=== PATIENT | female | born 1980 | race American Indian/Alaskan Native ===

== ENCOUNTER 2016-12-29 09:57 | Inpatient (IN) | payer OTHER ==
[2016-12-29 10:26] LABS: Mean Corpuscular HGB Conc 27 % (30-34); Red Blood Count 3.59 M/mm3 (3.65-5.03); White Blood Count 5.1 K/mm3 (4.5-11.0)
--- NOTE | 2016-12-29 10:36 | Emergency Department Report ---
ED Female HPI - General Chief complaint: Vaginal Bleeding Stated complaint: CYCLE TEN DAYS/W/CLOTS/HEADACHE/LIGHT HEADED Time Seen by Provider: 12/29/16 10:35 Source: patient Mode of arrival: Ambulatory Limitations: No Limitations - History of Present Illness Initial comments: The patient states that she's had intermittent bleeding (vaginal) for the past 10 days. She has not seen a senior db2 systems programmer in years. She states that in 2014 she was found to be anemic due to vaginal bleeding by her family physician. She was placed on iron. She did not tolerate that. She comes to the emergency department today complaining of headache, weakness and exertional dyspnea. She believes this is secondary to anemia. She is not actively bleeding at this time. She has not used pads today rather just wanted tissue. MD Complaint: vaginal bleeding Quality: other Consistency: intermittent Improves with: none, menstrual period Are you Now?: No - Related Data Allergies Allergy/AdvReac Type Severity Reaction Status Date / Time No Known Allergies Allergy Unverified 12/29/16 10:04 ED Review of Systems ROS: Stated complaint: CYCLE TEN DAYS/W/CLOTS/HEADACHE/LIGHT HEADED Other details as noted in HPI Constitutional: weakness. denies: chills, fever Eyes: denies: eye pain, eye discharge, vision change ENT: denies: ear pain, throat pain Respiratory: shortness of breath. denies: cough, wheezing Cardiovascular: denies: chest pain, palpitations Endocrine: no symptoms reported Gastrointestinal: denies: abdominal pain, nausea, diarrhea Genitourinary: denies: urgency, dysuria, discharge Musculoskeletal: denies: back pain, joint swelling, arthralgia Skin: denies: rash, lesions Neurological: headache. denies: weakness, paresthesias Psychiatric: denies: anxiety, depression Hematological/Lymphatic: denies: easy bleeding, easy bruising ED Past Medical Hx - Past Medical History Additional medical history: anemia - Social History Substance Use Type: None ED Physical Exam - General Limitations: No Limitations General appearance: alert, in no apparent distress - Head Head exam: Present: atraumatic, normocephalic - Eye Eye exam: Present: PERRL, EOMI, other (conjunctival pallor) - ENT ENT exam: Present: mucous membranes moist - Neck Neck exam: Present: normal inspection. Absent: tenderness, meningismus - Respiratory Respiratory exam: Present: normal lung sounds bilaterally. Absent: respiratory distress - Cardiovascular Cardiovascular Exam: Present: regular rate, normal rhythm. Absent: systolic murmur, diastolic murmur, rubs, gallop - GI/Abdominal GI/Abdominal exam: Present: soft, normal bowel sounds. Absent: distended, tenderness, guarding, rebound, rigid - Bi-manual exam: Present: other (deferred to ultrasound findings) - Extremities Exam Extremities exam: Present: normal inspection - Back Exam Back exam: Present: normal inspection - Neurological Exam Neurological exam: Present: alert, oriented X3, CN II-XII intact. Absent: motor sensory deficit - Psychiatric Psychiatric exam: Present: normal affect, normal mood - Skin Skin exam: Present: warm, dry, intact, normal color. Absent: rash ED Course Vital Signs 12/29/16 12/29/16 10:04 12:50 Temperature 98.0 F 98.2 F Pulse Rate 75 73 Respiratory 16 18 Rate Blood Pressure 120/59 Blood Pressure 114/63 [Right] O2 Sat by Pulse 100 98 Oximetry - Reevaluation(s) Reevaluation #1: I spoke with the senior db2 systems programmer on-call. They stated they would come and see the patient and consult. They requested the patient be admitted to medicine for transfusion. 12/29/16 15:23 Reevaluation #2: U/S no active bleeding reported by tech. GOODWIN 12/29/16 15:36 ED Medical Decision Making - Lab Data Result diagrams: 12/29/16 10:14 12/29/16 10:14 Laboratory Results - last 24 hr 12/29/16 10:14 Sodium 141 Potassium 4.1 Chloride 108.0 H Carbon Dioxide 21 L Anion Gap 16 BUN 10 Creatinine 0.7 Estimated GFR > 60 BUN/Creatinine Ratio 14.28 Glucose 78 Calcium 8.9 Total Bilirubin 0.4 AST 14 ALT 9 Alkaline Phosphatase 49 Total Protein 7.0 Albumin 4.0 Albumin/Globulin Ratio 1.3 Lipase 14 Laboratory Results - last 24 hr 12/29/16 12/29/16 12/29/16 10:14 10:14 10:54 WBC 5.1 RBC 3.59 L Hgb 5.2 L* Hct 19.3 L* MCV 54 L MCH 14 L MCHC 27 L RDW 34.0 H Add Manual Diff Complete Total Counted 100 Seg Neuts % (Manual) 48.0 Band Neutrophils % 0 Lymphocytes % (Manual) 44.0 H Reactive Lymphs % (Man) 0 Monocytes % (Manual) 1.0 Eosinophils % (Manual) 2.0 Basophils % (Manual) 0 Metamyelocytes % 4.0 Myelocytes % 1.0 Promyelocytes % 0 Blast Cells % 0 Nucleated RBC % Not Reportable Seg Neutrophils # Man 2.4 Band Neutrophils # 0.0 Lymphocytes # (Manual) 2.2 Abs React Lymphs (Man) 0.0 Monocytes # (Manual) 0.1 Eosinophils # (Manual) 0.1 Basophils # (Manual) 0.0 Metamyelocytes # 0.2 Myelocytes # 0.1 Promyelocytes # 0.0 Blast Cells # 0.0 WBC Morphology Not Reportable Hypersegmented Neuts Not Reportable Hyposegmented Neuts Not Reportable Hypogranular Neuts Not Reportable Smudge Cells Not Reportable Toxic Granulation Not Reportable Toxic Vacuolation Not Reportable Dohle Bodies Not Reportable Pelger-Huet Anomaly Not Reportable Liz Rods Not Reportable Platelet Estimate Appears decreased Clumped Platelets Not Reportable Plt Clumps, EDTA Not Reportable Large Platelets Not Reportable Giant Platelets Not Reportable Platelet Satelliting Not Reportable Plt Morphology Comment Not Reportable RBC Morphology Not Reportable Dimorphic RBCs Not Reportable Polychromasia Not Reportable Hypochromasia 3+ Poikilocytosis Not Reportable Anisocytosis Not Reportable Microcytosis 2+ Macrocytosis Not Reportable Spherocytes Not Reportable Pappenheimer Bodies Not Reportable Sickle Cells Not Reportable Target Cells Not Reportable Tear Drop Cells Not Reportable Ovalocytes Not Reportable Helmet Cells Not Reportable Karimi-Woodlake Bodies Not Reportable Imperial Rings Not Reportable Jose Alejandro Cells Not Reportable Bite Cells Not Reportable Crenated Cell Not Reportable Elliptocytes Not Reportable Acanthocytes (Spur) Not Reportable Rouleaux Not Reportable Hemoglobin C Crystals Not Reportable Schistocytes Not Reportable Malaria parasites Not Reportable Mikey Bodies Not Reportable Hem Pathologist Commnt Sent to pathology Sodium 141 Potassium 4.1 Chloride 108.0 H Carbon Dioxide 21 L Anion Gap 16 BUN 10 Creatinine 0.7 Estimated GFR > 60 BUN/Creatinine Ratio 14.28 Glucose 78 Calcium 8.9 Total Bilirubin 0.4 AST 14 ALT 9 Alkaline Phosphatase 49 Total Protein 7.0 Albumin 4.0 Albumin/Globulin Ratio 1.3 Lipase 14 Urine Color Red Urine Turbidity Cloudy Urine pH 9.0 H Ur Specific [place]ay 1.021 Urine Protein 100 mg/dl Urine Glucose (UA) Neg Urine Ketones Neg Urine Blood Lg Urine Nitrite Neg Urine Bilirubin Neg Urine Urobilinogen < 2.0 Ur Leukocyte Esterase Neg Urine WBC (Auto) 2.0 Urine RBC (Auto) > 182.0 U Epithel Cells (Auto) 2.0 Urine Mucus 2+ Urine HCG, Qual Negative Blood Type Antibody Screen Crossmatch 12/29/16 11:10 WBC RBC Hgb Hct MCV MCH MCHC RDW Add Manual Diff Total Counted Seg Neuts % (Manual) Band Neutrophils % Lymphocytes % (Manual) Reactive Lymphs % (Man) Monocytes % (Manual) Eosinophils % (Manual) Basophils % (Manual) Metamyelocytes % Myelocytes % Promyelocytes % Blast Cells % Nucleated RBC % Seg Neutrophils # Man Band Neutrophils # Lymphocytes # (Manual) Abs React Lymphs (Man) Monocytes # (Manual) Eosinophils # (Manual) Basophils # (Manual) Metamyelocytes # Myelocytes # Promyelocytes # Blast Cells # WBC Morphology Hypersegmented Neuts Hyposegmented Neuts Hypogranular Neuts Smudge Cells Toxic Granulation Toxic Vacuolation Dohle Bodies Pelger-Huet Anomaly Liz Rods Platelet Estimate Clumped Platelets Plt Clumps, EDTA Large Platelets Giant Platelets Platelet Satelliting Plt Morphology Comment RBC Morphology Dimorphic RBCs Polychromasia Hypochromasia Poikilocytosis Anisocytosis Microcytosis Macrocytosis Spherocytes Pappenheimer Bodies Sickle Cells Target Cells Tear Drop Cells Ovalocytes Helmet Cells Karimi-Woodlake Bodies Imperial Rings Jose Alejandro Cells Bite Cells Crenated Cell Elliptocytes Acanthocytes (Spur) Rouleaux Hemoglobin C Crystals Schistocytes Malaria parasites Mikey Bodies Hem Pathologist Commnt Sodium Potassium Chloride Carbon Dioxide Anion Gap BUN Creatinine Estimated GFR BUN/Creatinine Ratio Glucose Calcium Total Bilirubin AST ALT Alkaline Phosphatase Total Protein Albumin Albumin/Globulin Ratio Lipase Urine Color Urine Turbidity Urine pH Ur Specific [place] Urine Protein Urine Glucose (UA) Urine Ketones Urine Blood Urine Nitrite Urine Bilirubin Urine Urobilinogen Ur Leukocyte Esterase Urine WBC (Auto) Urine RBC (Auto) U Epithel Cells (Auto) Urine Mucus Urine HCG, Qual Blood Type O POSITIVE Antibody Screen Negative Crossmatch See Detail Laboratory Results - last 24 hr 12/29/16 12/29/16 12/29/16 10:14 10:14 10:54 WBC 5.1 RBC 3.59 L Hgb 5.2 L* Hct 19.3 L* MCV 54 L MCH 14 L MCHC 27 L RDW 34.0 H Add Manual Diff Complete Total Counted 100 Seg Neuts % (Manual) 48.0 Band Neutrophils % 0 Lymphocytes % (Manual) 44.0 H Reactive Lymphs % (Man) 0 Monocytes % (Manual) 1.0 Eosinophils % (Manual) 2.0 Basophils % (Manual) 0 Metamyelocytes % 4.0 Myelocytes % 1.0 Promyelocytes % 0 Blast Cells % 0 Nucleated RBC % Not Reportable Seg Neutrophils # Man 2.4 Band Neutrophils # 0.0 Lymphocytes # (Manual) 2.2 Abs React Lymphs (Man) 0.0 Monocytes # (Manual) 0.1 Eosinophils # (Manual) 0.1 Basophils # (Manual) 0.0 Metamyelocytes # 0.2 Myelocytes # 0.1 Promyelocytes # 0.0 Blast Cells # 0.0 WBC Morphology Not Reportable Hypersegmented Neuts Not Reportable Hyposegmented Neuts Not Reportable Hypogranular Neuts Not Reportable Smudge Cells Not Reportable Toxic Granulation Not Reportable Toxic Vacuolation Not Reportable Dohle Bodies Not Reportable Pelger-Huet Anomaly Not Reportable Liz Rods Not Reportable Platelet Estimate Appears decreased Clumped Platelets Not Reportable Plt Clumps, EDTA Not Reportable Large Platelets Not Reportable Giant Platelets Not Reportable Platelet Satelliting Not Reportable Plt Morphology Comment Not Reportable RBC Morphology Not Reportable Dimorphic RBCs Not Reportable Polychromasia Not Reportable Hypochromasia 3+ Poikilocytosis Not Reportable Anisocytosis Not Reportable Microcytosis 2+ Macrocytosis Not Reportable Spherocytes Not Reportable Pappenheimer Bodies Not Reportable Sickle Cells Not Reportable Target Cells Not Reportable Tear Drop Cells Not Reportable Ovalocytes Not Reportable Helmet Cells Not Reportable Karimi-Woodlake Bodies Not Reportable Imperial Rings Not Reportable Jose Alejandro Cells Not Reportable Bite Cells Not Reportable Crenated Cell Not Reportable Elliptocytes Not Reportable Acanthocytes (Spur) Not Reportable Rouleaux Not Reportable Hemoglobin C Crystals Not Reportable Schistocytes Not Reportable Malaria parasites Not Reportable Mikey Bodies Not Reportable Hem Pathologist Commnt Sent to pathology Sodium 141 Potassium 4.1 Chloride 108.0 H Carbon Dioxide 21 L Anion Gap 16 BUN 10 Creatinine 0.7 Estimated GFR > 60 BUN/Creatinine Ratio 14.28 Glucose 78 Calcium 8.9 Total Bilirubin 0.4 AST 14 ALT 9 Alkaline Phosphatase 49 Total Protein 7.0 Albumin 4.0 Albumin/Globulin Ratio 1.3 Lipase 14 Urine Color Red Urine Turbidity Cloudy Urine pH 9.0 H Ur Specific Barclay 1.021 Urine Protein 100 mg/dl Urine Glucose (UA) Neg Urine Ketones Neg Urine Blood Lg Urine Nitrite Neg Urine Bilirubin Neg Urine Urobilinogen < 2.0 Ur Leukocyte Esterase Neg Urine WBC (Auto) 2.0 Urine RBC (Auto) > 182.0 U Epithel Cells (Auto) 2.0 Urine Mucus 2+ Urine HCG, Qual Negative Blood Type Antibody Screen Crossmatch 12/29/16 11:10 WBC RBC Hgb Hct MCV MCH MCHC RDW Add Manual Diff Total Counted Seg Neuts % (Manual) Band Neutrophils % Lymphocytes % (Manual) Reactive Lymphs % (Man) Monocytes % (Manual) Eosinophils % (Manual) Basophils % (Manual) Metamyelocytes % Myelocytes % Promyelocytes % Blast Cells % Nucleated RBC % Seg Neutrophils # Man Band Neutrophils # Lymphocytes # (Manual) Abs React Lymphs (Man) Monocytes # (Manual) Eosinophils # (Manual) Basophils # (Manual) Metamyelocytes # Myelocytes # Promyelocytes # Blast Cells # WBC Morphology Hypersegmented Neuts Hyposegmented Neuts Hypogranular Neuts Smudge Cells Toxic Granulation Toxic Vacuolation Dohle Bodies Pelger-Huet Anomaly Liz Rods Platelet Estimate Clumped Platelets Plt Clumps, EDTA Large Platelets Giant Platelets Platelet Satelliting Plt Morphology Comment RBC Morphology Dimorphic RBCs Polychromasia Hypochromasia Poikilocytosis Anisocytosis Microcytosis Macrocytosis Spherocytes Pappenheimer Bodies Sickle Cells Target Cells Tear Drop Cells Ovalocytes Helmet Cells Karimi-Woodlake Bodies Imperial Rings [place] Cells Bite Cells Crenated Cell Elliptocytes Acanthocytes (Spur) Rouleaux Hemoglobin C Crystals Schistocytes Malaria parasites Mikey Bodies Hem Pathologist Commnt Sodium Potassium Chloride Carbon Dioxide Anion Gap BUN Creatinine Estimated GFR BUN/Creatinine Ratio Glucose Calcium Total Bilirubin AST ALT Alkaline Phosphatase Total Protein Albumin Albumin/Globulin Ratio Lipase Urine Color Urine Turbidity Urine pH Ur Specific Barclay Urine Protein Urine Glucose (UA) Urine Ketones Urine Blood Urine Nitrite Urine Bilirubin Urine Urobilinogen Ur Leukocyte Esterase Urine WBC (Auto) Urine RBC (Auto) U Epithel Cells (Auto) Urine Mucus Urine HCG, Qual Blood Type O POSITIVE Antibody Screen Negative Crossmatch See Detail Critical care attestation.: If time is entered above; I have spent that time in minutes in the direct care of this critically ill patient, excluding procedure time. ED Disposition Clinical Impression: Symptomatic anemia, Dysfunctional uterine bleeding Disposition: OP ADMITTED IP TO THIS HOSP Is pt being admited?: Yes Does the pt Need Aspirin: No Condition: Stable Time of Disposition: 15:38
[2016-12-29 10:39] LABS: Alanine Aminotransferase 9 units/L (7-56); Albumin/Globulin Ratio 1.3 %; Alkaline Phosphatase 49 units/L (35-129); Anion Gap 16 mmol/L; BUN/Creatinine Ratio 14.28; Bilirubin,Total 0.4 mg/dL (0.1-1.2); Blood Urea Nitrogen 10 mg/dL (7-17); Calcium 8.9 mg/dL (8.4-10.2); Carbon Dioxide 21 mmol/L (22-30); Glucose 78 mg/dL (65-100); Lipase 14 units/L (13-60); Potassium 4.1 mmol/L (3.6-5.0); Sodium 141 mmol/L (137-145)
[2016-12-29 10:40] LABS: Mean Corpuscular Hemoglobin 14 pg (28-32); Mean Corpuscular Volume 54 fl (79-97)
[2016-12-29 10:47] LABS: Hematocrit 19.3 % (30.3-42.9)
[2016-12-29 10:48] LABS: Hemoglobin 5.2 gm/dl (10.1-14.3)
[2016-12-29] MEDS ORDERED: NACL 0.9% 1000 ML 1,000 ML IV ONE (10:48)
[2016-12-29] MEDS ORDERED: NACL 0.9% 500 ML 500 ML IV ONE (10:48)
--- NOTE | 2016-12-29 11:14 | Admit Criteria Form ---
Admission Criteria Documentation: OBSTETRIC AND GYNECOLOGIC DISEASE GRG Clinical Indications for Admission to Inpatient Care (Place 'X' for any and all applicable criteria): Hospital admission is needed for appropriate care of the patient because of ANY ONE of the following (1)(2)(3): [ ]I. Hemodynamic instability, as indicated by ALL of the following (1)(2)(3)( 4)(5): [ ]a) Vital signs or other findings not as expected for chronic patient condition or baseline [ ]b) Instability indicated by ANY ONE of the following: [ ]i) Hypotension [ ]ii) Symptomatic tachycardia unresponsive to treatment (eg, analgesia, fluids, sedation as indicated) [ ]iii) Inadequate perfusion indicated by ANY ONE of the following: [ ]A. Lactic acidosis (greater than 2 mmol/ L) [ ]B. New abnormal capillary refill ( greater than 3 seconds) [ ]C. Reduced urine output [ ]D. New altered mental status [ ]iv) Orthostatic vital sign changes unresponsive to treatment (eg, fluids) [ ]v) Multiple IV fluid boluses required to maintain adequate blood pressure or perfusion [ ]vi) IV inotropic or vasopressor medication required to maintain adequate blood pressure or perfusion [ ]II. Obstetric infection requiring hospitalization indicated by ANY ONE of the following(13)(14): [ ]a) Chorioamnionitis [ ]b) Endometritis (except mild endometritis) [ ]c) Pelvic abscess [ ]d) Peritonitis [ ]e) Septic pelvic thrombophlebitis [ ]III. Amniotic fluid or pulmonary embolism(4)(5)(6) [ ]IV. Suspected peritonitis or ectopic requiring monitoring beyond scope of 24 hours or observation care(7)(8) [ ]V. compromise requiring hospitalization indicated by ALL of the following(9)(10): [ ]a) compromise indicated by ANY ONE of the following(11): [ ]i) Abnormal heart rate monitoring [ ]ii) Abnormal contraction stress test [ ]iii) Abnormal biophysical profile [ ]iv) Abnormal Doppler flow in vessels (ie, Doppler velocimetry) (12) [ ]b) Persistence of compromise indicators during evaluation and observation monitoring [ ]. Ovarian hyperstimulation syndrome requiring hospitalization[A] indicated by ALL of the following(15): [ ]a) Recent ovarian stimulation with gonadotropins, or evidence on ultrasound of spontaneous emergence of large number of ovarian follicles [ ]b) Evidence of severe ovarian hyperstimulation syndrome indicated by ANY ONE of the following: [ ]i) Abdominal pain unresponsive to oral therapy [ ]ii) Acute respiratory distress syndrome [ ]iii) Electrolyte imbalance ( eg, hyponatremia, hyperkalemia) [ ]iv) Elevated liver enzymes [ ]v) Evidence of thromboembolism [ ]vi) Hemoconcentration (hematocrit greater than 45 % (0.45)) [ ]vii) Inability to maintain oral intake adequate to prevent hemoconcentration [ ]viii) Marked hypotension from baseline (eg, SBP 20 mmHg below patients usual pressure) [ ]ix) Oliguria or anuria [ ]x) Ovarian torsion [ ]xi) Pleural or pericardial effusion on x-ray or echocardiogram [ ]xii) Rapid increase in serum creatinine to greater than 1.2 mg/dL (106 micromoles/L) or creatinine clearance less than 50 mL/min/1.73m2 (0.84 mL/ sec/1.73m2) [ ]xiii) Ruptured ovarian cyst with hemorrhage [ ]xiv) Severe abdominal pain or peritoneal signs [ ]xv) Tense ascites that cannot be managed with paracentesis in outpatient setting [ ]VII.Pelvic infection requiring hospitalization indicated by ANY ONE of the following (16): [ ]a) Outpatient treatment has failed or is not appropriate (eg, inpatient monitoring required) [ ]b) Pelvic abscess [ ]c) Surgical emergency cannot be excluded (eg, rigid abdomen) [ ]d) Vomiting precluding outpatient and observation care management VIII. loss complications requiring inpatient medical treatment indicated by ANY ONE of the following (4)(7)(9): [ ]a) Fever [ ]b) Peritonitis [ ]c) Sepsis [ ]d) Severe abdominal pain [ ]IX. or patient requiring monitoring for severe heart failure, pulmonary disease, or other comorbid condition (eg, peripartum cardiomyopathy) (4)(17) [ ]X. patient with rupture of membranes requiring hospitalization indicated by ANY ONE of the following: [ ]a) Chorioamnionitis, cloudy amniotic fluid, or other evidence of infection [ ]b) compromise or other need for monitoring (11) [ ]c) Gestation longer than 23 weeks and ANY ONE of the following: [ ]i) Abnormal (noncephalic) presentation [ ]ii) Inadequate home environment (eg, home too far from hospital, unable to rapidly return to hospital) [ ]d) Temperature greater than 100.4 degrees F (38 degrees C)( oral) [ ]e) Threatened labor requiring monitoring beyond scope (eg, over 24 hours) of observation Care [ ] XI. complications, including severe lacerations, infections, or retained placenta (19) [X ] XII.Uterine bleeding with high-risk features indicated by ANY ONE of the following (4): [ ]a) Active major hemorrhage (eg, hemorrhage) [ ]b) Coagulopathy with active bleeding [ ]c) Gestational trophoblastic disease (eg, molar ) (20 ) [ ]d) (longer than 23 weeks) and ANY ONE of the following: [ ]i) Pain [ ]ii) Placental abruption, known or suspected [ ]iii) Placenta accrete, known or suspected(21) [ ]iv) Placenta previa, known or suspected [ ]v) Vasa previa [X ]e) Severe anemia [ ]XIII. Obstetric or Gynecologic Disease, condition or symptom for which ANY ONE of the following: [ ]a) Emergency and observation care have failed or are not considered appropriate ( Also use General Criteria: Observation Care Criteria as appropriate) [ ]b) Presence of a General Admission Criteria or Pediatric General Admission Criteria The original [facility] datapine content created by [facility] has been revised. The portions of the content which have been revised are identified through the use of italic text or in bold, and [facility] has neither reviewed nor approved the modified material.All other unmodified content is copyright [facility]. Please see references footnoted in the original [facility] edition 2016 Admission Criteria Met: Yes
[2016-12-29 11:31] LABS: Bilirubin,Urine NEG (Negative); Blood,Urine LG (Negative); Ketones,Urine NEG (Negative); Leukocyte Esterase,Urine NEG (Negative); Mucus,Urine 2+ /HPF; Nitrite,Urine NEG (Negative); Urobilinogen,Urine < 2.0 mg/dL (<2.0)
[2016-12-29 11:33] LABS: RBC,Urine > 182.0 /HPF (0.0-6.0)
[2016-12-29 12:18] LABS: Basophils % (Manual) 0 % (0.0-1.8); Blastocytes % (Manual) 0 %
[2016-12-29 12:20] LABS: Hypochromasia 3+
[2016-12-29 12:21] LABS: Microcytosis 2+
[2016-12-29 12:22] LABS: Diff Status Complete; Platelet Estimate Appears Decreased
[2016-12-29] MEDS ORDERED: NACL ONE (12:32)
--- NOTE | 2016-12-29 14:19 | History and Physical Report ---
History of Present Illness Date of examination: 12/29/16 Chief complaint: heavy vaginal bleeding with dizziness History of present illness: Patient is 36-year-old woman without any chronic medical problems who presents with severe heavy constant vaginal bleeding since 19 of December with heavy clots without nonradiating pain. She complains of lightheadedness faint fatigue. She denies any fevers chills cough abdominal pain nausea vomiting diarrhea or urinary retention. She denies any other complaints. Past History Past Medical History: other (as hpi) Past Surgical History: Other (tubal ligitation) Social history: full code. denies: smoking, alcohol abuse, prescription drug abuse, IV drug use Family history: hypertension (sister) Medications and Allergies Allergies Allergy/AdvReac Type Severity Reaction Status Date / Time No Known Allergies Allergy Unverified 12/29/16 10:04 Active Meds: Active Medications Sodium Chloride (Nacl 0.9% 1000 Ml) 1,000 mls @ 125 mls/hr IV ONCE ONE Stop: 12/29/16 18:47 Last Admin: 12/29/16 13:11 Dose: 125 mls/hr Review of Systems All systems: negative (as HPI and all other ROS reviewed and negative.) Exam - Physical Exam Narrative exam: GEN: WDWN, NAD, AWAKE, ALERT, ORIENTATED x 3 HEENT: NCAT, PERRL, EOMI, OP CLEAR NECK: SUPPLE, NO THYROMEGALY, NO JVD, NO LAD CVS: RRR, NORMAL S1S2 LUNGS/CHEST: CTA B, NORMAL CHEST EXPANSION B, GOOD AIR ENTRY B ABD: SOFT NTND, GBS, NO REBOUND OR GUARDING EXT/SKIN: NO SIGNIFICANT EDEMA OR RASH MSK: FROM X 4 EXTREMITIES NEURO: CN 2-12 GROSSLY INTACT, NO FOCAL DEFICITS PSY: CALM - Constitutional Vitals: Temp Pulse Resp BP Pulse Ox 98.2 F 73 18 114/63 98 12/29/16 12:50 12/29/16 12:50 12/29/16 12:50 12/29/16 12:50 12/29/16 12:50 Results - Labs CBC & Chem 7: 12/29/16 10:14 12/29/16 10:14 Labs: Abnormal lab results 12/29/16 12/29/16 12/29/16 Range/Units 10:14 10:14 10:54 RBC 3.59 L (3.65-5.03) M/mm3 Hgb 5.2 L* (10.1-14.3) gm/dl Hct 19.3 L* (30.3-42.9) % MCV 54 L (79-97) fl MCH 14 L (28-32) pg MCHC 27 L (30-34) % RDW 34.0 H (13.2-15.2) % Lymphocytes % (Manual) 44.0 H (13.4-35.0) % Chloride 108.0 H (98-107) mmol/L Carbon Dioxide 21 L (22-30) mmol/L Urine pH 9.0 H (5.0-7.0) Crossmatch 12/29/16 Range/Units 11:10 RBC (3.65-5.03) M/mm3 Hgb (10.1-14.3) gm/dl Hct (30.3-42.9) % MCV (79-97) fl MCH (28-32) pg MCHC (30-34) % RDW (13.2-15.2) % Lymphocytes % (Manual) (13.4-35.0) % Chloride (98-107) mmol/L Carbon Dioxide (22-30) mmol/L Urine pH (5.0-7.0) Crossmatch See Detail Assessment and Plan Patient is 36-year-old woman without any chronic medical problems who presents with severe heavy constant vaginal bleeding since 19 of December with heavy clots without nonradiating pain. She complains of lightheadedness faint fatigue. She denies any fevers chills cough abdominal pain nausea vomiting diarrhea or urinary retention. She denies any other complaints. She was found have a hemoglobin of 5.2, hence, the admission. ED physician did call [facility] wants hospitalist to admit. 1. Abnormal uterine and vaginal bleeding: obgyn consulted 2. Anemia requiring transfusion 3. Dehydration due to anemia: Will hydrated with blood 4. Hematuria due to the above
[2016-12-29] MEDS ORDERED: TYLENOL PO PRN (14:21)
--- NOTE | 2016-12-29 14:58 | Ultrasound Report ---
Pelvic and transvaginal sonography: History: Anemia. Findings: Uterus measures 9.9 x 6.1 x 8.7 cm. Several fibroids are identified of the uterus. The largest measures 3.3 x 2.8 x 3.3 cm and is at the fundus. The smallest measures 1.5 x 1.1 x 1.8 cm and is of the left side. 2 other fibroids also identified with intermediate size. Endometrial thickness 10 mm. No mass or fluid in the endometrium. Right ovary 2.5 x 2.1 x 2.3 cm. No mass. Left ovary 2.6 x 2.2 x 2.8 cm. Cyst in the left ovary measures 2.2 cm. Minimal fluid in the cul-de-sac. Impression: Several fibers of uterus. Cyst in the left ovary. Minimal fluid in the cul-de-sac.
[2016-12-29] MEDS ORDERED: BENADRYL PO ONE ×2 (15:23→15:30)
[2016-12-29 15:40] LABS: Platelet Count 68 K/mm3 (140-440)
--- NOTE | 2016-12-29 18:06 | Consultation ---
History of Present Illness Consult date: 12/29/16 Requesting physician: BILLY VASQUEZ Reason for consult: menorrhagia History of present illness: Pt presented to ER c/o feeling fatigue and some dizziness starting today. 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 In Nov she had bleeding that stared on 12/19-12/22 that was the normal bleeding. However, after 12/22 she started having large clots being passed with blood "gushing out" when coughs, laughs or urinates. She is currently bleeding and declined vaginal exam. I advised pt that I would review sonogram and defer vaginal exam until seen in my office. Pt agrees with plan of care. Sonogram does show small fibroids with largest measuring 3.3cm. Pt has not seen a production manufacturing worker in several years but states last pap with pcp was normal. She does c/o increase lower abdominal girth with menses. 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: abnormal PAP smear (hpv and h/o cryo at age 13) Family/Genetic History: heart disease, hypertension, other (fibroids;) Social history: no significant social history - Obstetrical History : 3 Para: 2 Hx # Term Pregnancies: 2 Spontaneous Abortions: 1 Number of Living Children: 2 Medications and Allergies Allergies Allergy/AdvReac Type Severity Reaction Status Date / Time No Known Allergies Allergy Unverified 12/29/16 10:04 Home Medications Medication Instructions Recorded Confirmed Last Taken Type No Known Home Medications [No 12/29/16 12/29/16 Unknown History Reported Home Medications] Active Meds: Active Medications Acetaminophen (Tylenol) 650 mg PO Q6H PRN PRN Reason: Non Cardiac Pain or Temp>100.5 Sodium Chloride (Nacl 0.9% 1000 Ml) 1,000 mls @ 125 mls/hr IV ONCE ONE Stop: 12/29/16 18:47 Last Admin: 12/29/16 13:11 Dose: 125 mls/hr Review of Systems All systems: negative - Vital Signs Vital signs: Vital Signs Temp Pulse Resp BP Pulse Ox 98.0 F 75 16 120/59 100 12/29/16 10:04 12/29/16 10:04 12/29/16 10:04 12/29/16 10:04 12/29/16 10:04 Temp Pulse Resp BP Pulse Ox 98.8 F 77 20 128/59 100 12/29/16 16:24 12/29/16 16:24 12/29/16 16:24 12/29/16 16:24 12/29/16 16:24 - Physical Exam Breasts: Positive: deferred Lungs: Positive: Normal air movement Abdomen: Positive: normal appearance, soft. Negative: distention, tenderness, guarding Genitourinary (Female): Positive: other (deferred as per pt request) Extremities: Positive: normal. Negative: tenderness, edema Deep Tendon Reflex Grade: Normal +2 Results Result Diagrams: 12/29/16 10:14 12/29/16 10:14 All other labs normal. Assessment and Plan - Patient Problems (1) Uterine fibroid Current Visit: Yes Status: Acute Qualifiers: Uterine leiomyoma location: U Plan to address problem: -I have d/w pt several treatment options both surgical, and medical. Pt is leaning towards hysterectomy. I advised that she will need pap and completer work up prior to getting scheduled for any surgery. All of which can be done out patient. (2) Symptomatic anemia Current Visit: Yes Status: Acute Plan to address problem: -pt getting transfusion at this time -Oral Iron outpt. (3) Menorrhagia Current Visit: Yes Status: Acute Qualifiers: Menorrahagia type: with regular cycle Qualified Code(s): N92.0 - Excessive and frequent menstruation with regular cycle Plan to address problem: -currently small fibroids noted -will start provera 10mg po bid to help decrease the bleeding -needs pap, SIS, and embx for completed work up -would also recommend a thyroid panel -plan of care d/w and all questions were addressed and answered -ok to discharge pt with follow up in one week in [facility] ,[facility] office after transfusion completed as the work up can be done out patient.
[2016-12-29] MEDS: PROVERA PO SCH (22:22)
[2016-12-30 04:40] LABS: Mean Corpuscular HGB Conc 29 % (30-34); Red Blood Count 3.62 M/mm3 (3.65-5.03); White Blood Count 5.3 K/mm3 (4.5-11.0)
[2016-12-30 05:04] LABS: BUN/Creatinine Ratio 13.33; Blood Urea Nitrogen 8 mg/dL (7-17); Calcium 7.9 mg/dL (8.4-10.2); Carbon Dioxide 22 mmol/L (22-30); Chloride 108.9 mmol/L (98-107); Glucose 97 mg/dL (65-100); Potassium 3.8 mmol/L (3.6-5.0); Sodium 141 mmol/L (137-145)
[2016-12-30 05:05] LABS: Hematocrit 20.8 % (30.3-42.9); Mean Corpuscular Hemoglobin 16 pg (28-32); Mean Corpuscular Volume 58 fl (79-97); Platelet Count 64 K/mm3 (140-440); Red Cell Distribution Width 38.6 % (13.2-15.2)
[2016-12-30 05:11] LABS: Hemoglobin 5.9 gm/dl (10.1-14.3)
[2016-12-30] MEDS ORDERED: NACL 0.9% 500 ML 500 ML IV ONE (05:20)
[2016-12-30 05:28] LABS: Anion Gap 14 mmol/L
[2016-12-30] MEDS ORDERED: NACL 0.9% 500 ML 500 ML IV NR (10:00)
[2016-12-30] MEDS: PROVERA PO SCH ×2 (11:56→23:24)
--- NOTE | 2016-12-30 13:23 | Event Note ---
Date: 12/30/16 Patient doing fine, has received 2 u PRBC for her menorrhagia and chronic anemia , plans to receive 2 more. She understands the plan for office management of this problem with Dr Hernandez in our office. Prescriptions written for iron bid and Provera 10mg bid. She may be discharged from our point of view to f/u in office.
[2016-12-31] MEDS ORDERED: NACL 0.9% 500 ML 500 ML IV SCH (01:00)
--- NOTE | 2016-12-31 07:24 | Progress Note ---
Assessment and Plan - Patient Problems (1) Blood loss anemia Current Visit: Yes Status: Acute Plan to address problem: PRBC transfusion, supportive care, cbc in am. (2) Symptomatic anemia Current Visit: Yes Status: Acute Plan to address problem: prbc transfusion, bed rest until blood transfusion complete, supportive care, special education professional consulted, supportive care. (3) Menorrhagia Current Visit: Yes Status: Acute Qualifiers: Menorrahagia type: with regular cycle Qualified Code(s): N92.0 - Excessive and frequent menstruation with regular cycle Plan to address problem: BYN consulted, OCP, outpatieint special education professional f/u. (4) Uterine fibroid Current Visit: Yes Status: Acute Qualifiers: Uterine leiomyoma location: U Plan to address problem: supportive care, outpatient special education professional f/u, supportive care, (5) Obesity Current Visit: Yes Status: Acute Qualifiers: Obesity type: O Obesity severity: O Plan to address problem: Pt counseled, (6) DVT prophylaxis Current Visit: Yes Status: Acute History Interval history: Pt resting in bed, Pt states that she feels weak all the time, Pt denies fever, chills, CP, Palpitations, NVD, BRBPR. Hospitalist Physical - Constitutional Vitals: Temp Pulse Resp BP Pulse Ox 98 F 73 18 132/64 99 12/31/16 06:41 12/31/16 06:41 12/31/16 06:41 12/31/16 06:41 12/31/16 06:41 General appearance: Present: mild distress - EENT Eyes: Present: PERRL (conjunctival pallor) ENT: hearing intact - Neck Neck: Present: supple - Respiratory Respiratory effort: normal Respiratory: bilateral: CTA - Cardiovascular Rhythm: regular Heart Sounds: Present: S1 & S2 - Extremities Extremities: no ischemia Peripheral Pulses: within normal limits - Abdominal General gastrointestinal: soft, non-tender, non-distended - Integumentary Integumentary: Present: clear, dry - Psychiatric Psychiatric: appropriate mood/affect, cooperative - Neurologic Neurologic: CNII-XII intact, gait normal Results - Labs CBC & Chem 7: 12/30/16 04:27 12/30/16 04:27 Labs: Laboratory Last Values WBC 5.3 K/mm3 (4.5-11.0) 12/30/16 04:27 RBC 3.62 M/mm3 (3.65-5.03) L 12/30/16 04:27 Hgb 5.9 gm/dl (10.1-14.3) L* 12/30/16 04:27 Hct 20.8 % (30.3-42.9) L 12/30/16 04:27 MCV 58 fl (79-97) L D 12/30/16 04:27 MCH 16 pg (28-32) L 12/30/16 04:27 MCHC 29 % (30-34) L 12/30/16 04:27 RDW 38.6 % (13.2-15.2) H 12/30/16 04:27 Plt Count 64 K/mm3 (140-440) L 12/30/16 04:27 Add Manual Diff Complete 12/29/16 10:14 Total Counted 100 12/29/16 10:14 Seg Neuts % (Manual) 48.0 % (40.0-70.0) 12/29/16 10:14 Band Neutrophils % 0 % 12/29/16 10:14 Lymphocytes % (Manual) 44.0 % (13.4-35.0) H 12/29/16 10:14 Reactive Lymphs % (Man) 0 % 12/29/16 10:14 Monocytes % (Manual) 1.0 % (0.0-7.3) 12/29/16 10:14 Eosinophils % (Manual) 2.0 % (0.0-4.3) 12/29/16 10:14 Basophils % (Manual) 0 % (0.0-1.8) 12/29/16 10:14 Metamyelocytes % 4.0 % 12/29/16 10:14 Myelocytes % 1.0 % 12/29/16 10:14 Promyelocytes % 0 % 12/29/16 10:14 Blast Cells % 0 % 12/29/16 10:14 Nucleated RBC % Not Reportable 12/29/16 10:14 Seg Neutrophils # Man 2.4 K/mm3 (1.8-7.7) 12/29/16 10:14 Band Neutrophils # 0.0 K/mm3 12/29/16 10:14 Lymphocytes # (Manual) 2.2 K/mm3 (1.2-5.4) 12/29/16 10:14 Abs React Lymphs (Man) 0.0 K/mm3 12/29/16 10:14 Monocytes # (Manual) 0.1 K/mm3 (0.0-0.8) 12/29/16 10:14 Eosinophils # (Manual) 0.1 K/mm3 (0.0-0.4) 12/29/16 10:14 Basophils # (Manual) 0.0 K/mm3 (0.0-0.1) 12/29/16 10:14 Metamyelocytes # 0.2 K/mm3 12/29/16 10:14 Myelocytes # 0.1 K/mm3 12/29/16 10:14 Promyelocytes # 0.0 K/mm3 12/29/16 10:14 Blast Cells # 0.0 K/mm3 12/29/16 10:14 Pathologist Review 12/29/16 10:14 WBC Morphology Not Reportable 12/29/16 10:14 Hypersegmented Neuts Not Reportable 12/29/16 10:14 Hyposegmented Neuts Not Reportable 12/29/16 10:14 Hypogranular Neuts Not Reportable 12/29/16 10:14 Smudge Cells Not Reportable 12/29/16 10:14 Toxic Granulation Not Reportable 12/29/16 10:14 Toxic Vacuolation Not Reportable 12/29/16 10:14 Dohle Bodies Not Reportable 12/29/16 10:14 Pelger-Huet Anomaly Not Reportable 12/29/16 10:14 Liz Rods Not Reportable 12/29/16 10:14 Platelet Estimate Appears decreased 12/29/16 10:14 Clumped Platelets Not Reportable 12/29/16 10:14 Plt Clumps, EDTA Not Reportable 12/29/16 10:14 Large Platelets Not Reportable 12/29/16 10:14 Giant Platelets Not Reportable 12/29/16 10:14 Platelet Satelliting Not Reportable 12/29/16 10:14 Plt Morphology Comment Not Reportable 12/29/16 10:14 RBC Morphology Not Reportable 12/29/16 10:14 Dimorphic RBCs Not Reportable 12/29/16 10:14 Polychromasia Not Reportable 12/29/16 10:14 Hypochromasia 3+ 12/29/16 10:14 Poikilocytosis Not Reportable 12/29/16 10:14 Anisocytosis Not Reportable 12/29/16 10:14 Microcytosis 2+ 12/29/16 10:14 Macrocytosis Not Reportable 12/29/16 10:14 Spherocytes Not Reportable 12/29/16 10:14 Pappenheimer Bodies Not Reportable 12/29/16 10:14 Sickle Cells Not Reportable 12/29/16 10:14 Target Cells Not Reportable 12/29/16 10:14 Tear Drop Cells Not Reportable 12/29/16 10:14 Ovalocytes Not Reportable 12/29/16 10:14 Helmet Cells Not Reportable 12/29/16 10:14 [place] Bodies Not Reportable 12/29/16 10:14 L[place]o Rings Not Reportable 12/29/16 10:14 [place] Cells Not Reportable 12/29/16 10:14 Bite Cells Not Reportable 12/29/16 10:14 Crenated Cell Not Reportable 12/29/16 10:14 Elliptocytes Not Reportable 12/29/16 10:14 Acanthocytes (Spur) Not Reportable 12/29/16 10:14 Rouleaux Not Reportable 12/29/16 10:14 Hemoglobin C Crystals Not Reportable 12/29/16 10:14 Schistocytes Not Reportable 12/29/16 10:14 Malaria parasites Not Reportable 12/29/16 10:14 Mikey Bodies Not Reportable 12/29/16 10:14 Hem Pathologist Commnt Sent to pathology 12/29/16 10:14 Sodium 141 mmol/L (137-145) 12/30/16 04:27 Potassium 3.8 mmol/L (3.6-5.0) 12/30/16 04:27 Chloride 108.9 mmol/L (98-107) H 12/30/16 04:27 Carbon Dioxide 22 mmol/L (22-30) 12/30/16 04:27 Anion Gap 14 mmol/L 12/30/16 04:27 BUN 8 mg/dL (7-17) 12/30/16 04:27 Creatinine 0.6 mg/dL (0.7-1.2) L 12/30/16 04:27 Estimated GFR > 60 ml/min 12/30/16 04:27 BUN/Creatinine Ratio 13.33 % 12/30/16 04:27 Glucose 97 mg/dL (65-100) 12/30/16 04:27 Calcium 7.9 mg/dL (8.4-10.2) L 12/30/16 04:27 Total Bilirubin 0.4 mg/dL (0.1-1.2) 12/29/16 10:14 AST 14 units/L (5-40) 12/29/16 10:14 ALT 9 units/L (7-56) 12/29/16 10:14 Alkaline Phosphatase 49 units/L (35-129) 12/29/16 10:14 Total Protein 7.0 g/dL (6.3-8.2) 12/29/16 10:14 Albumin 4.0 g/dL (3.9-5) 12/29/16 10:14 Albumin/Globulin Ratio 1.3 % 12/29/16 10:14 Lipase 14 units/L (13-60) 12/29/16 10:14 TSH 2.590 mlU/mL (0.270-4.200) 12/30/16 04:27 Free T4 1.05 ng/dL (0.76-1.46) 12/30/16 04:27 Urine Color Red (Yellow) 12/29/16 10:54 Urine Turbidity Cloudy (Clear) 12/29/16 10:54 Urine pH 9.0 (5.0-7.0) H 12/29/16 10:54 Ur Specific [place] 1.021 (1.003-1.030) 12/29/16 10:54 Urine Protein 100 mg/dl mg/dL (Negative) 12/29/16 10:54 Urine Glucose (UA) Neg mg/dL (Negative) 12/29/16 10:54 Urine Ketones Neg mg/dL (Negative) 12/29/16 10:54 Urine Blood Lg (Negative) 12/29/16 10:54 Urine Nitrite Neg (Negative) 12/29/16 10:54 Urine Bilirubin Neg (Negative) 12/29/16 10:54 Urine Urobilinogen < 2.0 mg/dL (<2.0) 12/29/16 10:54 Ur Leukocyte Esterase Neg (Negative) 12/29/16 10:54 Urine WBC (Auto) 2.0 /HPF (0.0-6.0) 12/29/16 10:54 Urine RBC (Auto) > 182.0 /HPF (0.0-6.0) 12/29/16 10:54 U Epithel Cells (Auto) 2.0 /HPF (0-13.0) 12/29/16 10:54 Urine Mucus 2+ /HPF 12/29/16 10:54 Urine HCG, Qual Negative (Negative) 12/29/16 10:54 Blood Type O POSITIVE 12/29/16 11:10 Antibody Screen Negative 12/29/16 11:10 Crossmatch See Detail 12/29/16 11:10
[2016-12-31] MEDS: PROVERA PO SCH ×2 (08:19→12:11)
[2016-12-31 09:17] LABS: Mean Corpuscular HGB Conc 30 % (30-34); Red Blood Count 5.08 M/mm3 (3.65-5.03); White Blood Count 9.6 K/mm3 (4.5-11.0)
[2016-12-31 09:19] LABS: Hematocrit 33.8 % (30.3-42.9); Hemoglobin 10.3 gm/dl (10.1-14.3); Mean Corpuscular Hemoglobin 20 pg (28-32); Mean Corpuscular Volume 67 fl (79-97)
[2016-12-31 09:20] LABS: Platelet Count 84 K/mm3 (140-440); Red Cell Distribution Width > 40.0 % (13.2-15.2)
[2016-12-31 09:23] VITALS: BP 122/74
[2016-12-31 11:16] LABS: Anisocytosis 2+; Basophils % (Manual) 0 % (0.0-1.8); Blastocytes % (Manual) 0 %; Microcytosis 1+
[2016-12-31 11:18] LABS: Diff Status Complete; Hypochromasia 2+; Platelet Estimate Consistent w Auto
--- NOTE | 2016-12-31 14:12 | Discharge Summary ---
Providers - Providers Date of Admission: 12/29/16 13:54 Attending physician: JOSE DEUARDO DURON Primary care physician: SHARE DAIRY FARMER Hospitalization Condition: Stable - Discharge Diagnoses (1) Blood loss anemia Status: Acute (2) Symptomatic anemia Status: Acute (3) Menorrhagia Status: Acute Qualifiers: Menorrahagia type: with regular cycle Qualified Code(s): N92.0 - Excessive and frequent menstruation with regular cycle (4) Uterine fibroid Status: Acute Qualifiers: Uterine leiomyoma location: U (5) Obesity Status: Acute Qualifiers: Obesity type: O Obesity severity: O (6) DVT prophylaxis Status: Acute Core Measure Documentation - Palliative Care Palliative Care/ Comfort Measures: Not Applicable Exam - Constitutional Vitals: Temp Pulse Resp BP Pulse Ox 98 F 78 18 122/74 98 12/31/16 08:00 12/31/16 08:00 12/31/16 08:00 12/31/16 08:00 12/31/16 08:00 Plan Follow up with: PRIMARY MD SUMAYA [Primary Care Provider] - 3-5 Days Prescriptions: Ferrous Sulfate [Feosol] 325 mg PO BID #60 tablet medroxyPROGESTERone ACETATE [Provera] 10 mg PO BID #60 tablet
== END 2016-12-31 15:30 | disposition home or self-care (01) | DRG 760 ==
LOC: ED 09:57 → 3A 13:54
PROVIDERS: ADMIT Internal Medicine; ATTEND Internal Medicine
PROC: 30233N1 Transfusion of Nonautologous Red Blood Cells into Peripheral Vein, Percutaneous Approach (ICD-10-PCS; principal; 2016-12-29)
DX: D25.9 Leiomyoma of uterus, unspecified (principal); D62 Acute posthemorrhagic anemia; N93.9 Abnormal uterine and vaginal bleeding, unspecified; E86.0 Dehydration; R31.9 Hematuria, unspecified; N92.0 Excessive and frequent menstruation with regular cycle; E66.9 Obesity, unspecified; Z98.51 Tubal ligation status; Z82.49 Family history of ischemic heart disease and other diseases of the circulatory system; Z68.31 Body mass index [BMI] 31.0-31.9, adult
CPT/HCPCS: 36415; 76830; 76856; 80048; 80053; 81001; 81025; 83690; 84439; 84443; 85007; 85025; 85027; 86850; 86900; 86901; 86920; 93005; 93010; 96360; 96361; J7030; J7040; P9016